=== PATIENT | male | born 1980 | race Caucasian/White ===

== ENCOUNTER 2022-10-18 19:10 | Emergency (ER) | payer SELFPAY ==
[~2022-10-18] VITALS: Ht 175.3 cm; Wt 83.0 kg
[~2022-10-18 19:10] MED LIST: DEPO-MEDROL80 MG/ML IM; HYDROCHLOROT25 MG PO; HYDROXYZ HCL25 MG PO; LISINOPRIL10 MG PO; MEDDOSEPAK PO; NAPROSYN500 MG PO; NAPROXEN500 MG PO; OMEPRAZOLE20 MG PO; PREDNISONE10 MG PO; XANAX0.25 MG PO
[2022-10-18 19:17] VITALS: BP 144/93
[2022-10-18 19:30] VITALS: BP 132/94
[2022-10-18 19:45] VITALS: BP 120/87
[2022-10-18 20:21] LABS: BASO% 0.3 % (0-3); HEMATOCRIT 43.5 % (39.0-50.0); HEMOGLOBIN 15.3 g/dl (14.0-18.0); IMMATURE GRANULOCYTES 0.2 % (0.0-5.0); LYMPH% 16.1 % (15-41); MEAN CORPUSCULAR HGB 31.3 pG CALC (26.0-32.0); MEAN CORPUSCULAR HGB CONC 35.2 g/dL CAL (32.0-36.0); NEUT# 4.79 thou/uL (1.82-7.42); NEUT% 74.4 % (42-76); RED BLOOD COUNT 4.89 mill/uL (4.70-6.10)
[2022-10-18 20:36] LABS: ALBUMIN 4.8 g/dL (3.2-5.0); ALKALINE PHOSPHATASE 72 u/l (38-126); ANION GAP 11 (6-22 (CALC)); BILIRUBIN, TOTAL 0.5 mg/dL (0.2-1.3); BUN 16 mg/dL (9-20); BUN/CREATININE RATIO 17 (12-20 (CALC)); CARBON DIOXIDE 27 mmol/l (22-30); CHLORIDE 105 mmol/l (95-108); CREATININE 0.9 mg/dL (0.7-1.3); D-DIMER 1.87 mg/L (0.19-0.60); GFR FOR AFR.AMER. > 60 ML/MIN (>=60 (CALC)); GFR OTHER RACES > 60 ML/MIN (>=60 (CALC)); SGOT/AST 37 u/l (17-59); SODIUM 140 mmol/l (137-146)
[2022-10-18 20:40] LABS: ACT PARTIAL THROMBO TIME 23.2 SECONDS (20.0-32.5); PROTHROMBIN TIME 9.8 SECONDS (9.0-12.5)
[2022-10-18] MEDS ORDERED: PERCOCET 5/325M1 TAB PO (22:14)
[2022-10-18 22:35] VITALS: BP 120/87
== END 2022-10-18 22:43 | disposition home or self-care (01) | DRG 563 ==
LOC: ED 19:10
PROVIDERS: Emergency Medicine
DX: S43.101A Unspecified dislocation of right acromioclavicular joint, initial encounter (principal); I10 Essential (primary) hypertension; E78.5 Hyperlipidemia, unspecified; F41.9 Anxiety disorder, unspecified; E66.3 Overweight; F17.220 Nicotine dependence, chewing tobacco, uncomplicated; V80.010A Animal-rider injured by fall from or being thrown from horse in noncollision accident, initial encounter; Y93.52 Activity, horseback riding; Y92.009 Unspecified place in unspecified non-institutional (private) residence as the place of occurrence of the external cause
CPT/HCPCS: Q9967